=== PATIENT | female | born 1980 | race Caucasian/White ===

== ENCOUNTER 2018-12-17 09:18 | Emergency (ER) | payer BC ==
[2018-12-17 10:11] VITALS: BP 103/75
--- NOTE | 2018-12-17 10:29 | UC ---
Ear Complaint HPI - HPI Summary HPI Summary: patient self-prescribed 10 day course prednisone for sinus and L ear pain. finished 1 weeks ago and was feeling better until 2-3 days ago, now has R sided facial pain, L ear pain and frontal headache. Has been using Flonase nasal spray and sudafed with little relief - History of Current Complaint Chief Complaint: UCGeneralIllness Stated Complaint: SINUS ISSUE EAR PAIN HEADACHE Time Seen by Provider: 12/17/18 10:02 Hx Obtained From: Patient ?: No - Mirena Onset/Duration: Gradual Onset Severity Initially: Mild Severity Currently: Moderate Pain Intensity: 5 Aggravating Factors: Nothing Alleviating Factors: Nothing - Allergies/Home Medications Allergies/Adverse Reactions: Allergies Allergy/AdvReac Type Severity Reaction Status Date / Time No Known Allergies Allergy Verified 12/17/18 10:15 Home Medications: Home Medications Etonogest/Eth.estradiol (Nf) [Nuvaring Vaginal Ring] 1 vag ring VAGINAL WEEKLY 12/17/18 [History Confirmed 12/17/18] PMH/Surg Hx/FS Hx/Imm Hx Previously Healthy: Yes - Surgical History Surgical History: Yes Surgery Procedure, Year, and Place: arthroscopic surgery, gastric sleeve - Family History Known Family History: Positive: Non-Contributory - Social History Occupation: Employed Full-time Lives: With Family Alcohol Use: None Substance Use Type: None Smoking Status (MU): Never Smoked Tobacco Review of Systems All Other Systems Reviewed And Are Negative: Yes Constitutional: Positive: Negative. Negative: Fever, Chills Skin: Positive: Negative. Negative: Rash Eyes: Positive: Negative ENT: Positive: Ear Ache, Sinus Congestion, Sinus Pain/Tenderness Respiratory: Positive: Negative. Negative: Cough Cardiovascular: Positive: Negative Neurological: Positive: Negative Psychological: Positive: Negative Is Patient Immunocompromised?: No Physical Exam Triage Information Reviewed: Yes Appearance: Well-Appearing, No Pain Distress, Well-Nourished Vital Signs: Initial Vital Signs Temp 98.4 F 12/17/18 10:05 Pulse 90 12/17/18 10:05 Resp 18 12/17/18 10:05 BP 103/75 12/17/18 10:05 Pulse Ox 98 12/17/18 10:05 Vital Signs Reviewed: Yes Eye Exam: Normal Eyes: Positive: Conjunctiva Clear ENT: Positive: Pharynx normal, Nasal congestion, TMs normal, Sinus tenderness Dental Exam: Normal Neck exam: Normal Neck: Positive: Supple Respiratory Exam: Normal Respiratory: Positive: Lungs clear Cardiovascular Exam: Normal Cardiovascular: Positive: RRR Neurological Exam: Normal Neurological: Positive: Alert Psychological Exam: Normal Skin Exam: Normal Ear Complaint Course/Dx - Differential Dx/Diagnosis Differential Diagnosis/HQI/PQRI: Cerumen Impaction, Otitis Externa, Otitis Media , URI Provider Diagnosis: Sinusitis Discharge - Sign-Out/Discharge Documenting (check all that apply): Patient Departure All imaging exams completed and their final reports reviewed: No Studies - Discharge Plan Condition: Good Disposition: HOME Prescriptions: Ciprofloxacin TAB* [Cipro 500 MG TAB*] 500 mg PO BID #20 tab Patient Education Materials: Sinusitis (ED) Referrals: Delores Gonzalez MD [Primary Care Provider] - 3 Days (If no better) Additional Instructions: Drink plenty of fluids and rest start cipro antibiotic continue over the counter sinus relief medications as diretced - Billing Disposition and Condition Condition: GOOD Disposition: Home - Attestation Statements Provider Attestation: I was available for consult. This patient was seen by the BELEN. The patient was not presented to , seen by or examined by il -Wm Cade MD
== END 2018-12-17 10:38 | disposition home or self-care (01) ==
LOC: UCEAST 09:18
DX: J32.9 Chronic sinusitis, unspecified (principal)
CPT/HCPCS: 99202; G0463